=== PATIENT | female | born 1985 | race Caucasian/White ===

== ENCOUNTER 2020-03-18 16:21 | Emergency (ER) | payer BC ==
[~2020-03-18] VITALS: Ht 167.6 cm; Wt 50.0 kg
[~2020-03-18 16:21] MED LIST: LORTAB 7.57.5 MG PO; MULTI VIT PO
[2020-03-18] MEDS ORDERED: AMOXICILLIN875 MG PO (18:09)
[2020-03-18 18:29] VITALS: BP 128/75
== END 2020-03-18 18:29 | disposition home or self-care (01) | DRG 866 ==
LOC: ED 16:21
DX: B34.9 Viral infection, unspecified (principal); Z20.828 Contact with and (suspected) exposure to other viral communicable diseases